=== PATIENT | male | born 1965 | race Caucasian/White ===

== ENCOUNTER 2023-08-09 11:00 | Emergency (ER) | payer SELFPAY ==
[~2023-08-09 11:00] MED LIST: Iopamidol 370 76% 100 ML VIAL ONE
[2023-08-09 12:05] LABS: #Basophils 0.1 thou/uL (0.0-0.2); #Eosinphils 0.3 thou/uL (0.0-0.7); #Monocytes 0.8 thou/uL (0.11-0.59); #Neutrophils 10.6 thou/uL (1.40-6.50); %Basophils 0.8 % (0.0-1.0); %Eosinophils 2.4 % (0.0-10.0); %Lymphocytes 19.9 % (21.0-51.0); %Monocytes 5.3 % (0.0-10.0); %Neutrophils 71.6 % (42.0-75.0); Hematocrit 51.6 % (42.0-52.0); Hemoglobin 17.2 g/dL (14.0-18.0); Mean Corpuscular HGB CONC 33.4 g/dL (32.0-36.0); Mean Corpuscular Hemoglobin 30.4 pg (27.0-31.0); Mean Platelet Volume 7.5 fL (7.4-10.4); Platelet Count 260 10x3/uL (130-400); RBC Distribution Width 13.1 % (11.5-14.5); Red Blood Cell (RBC) Count 5.67 mill/uL (4.70-6.10); White Blood Cell (WBC) Count 14.8 10x3/uL (4.8-10.8)
[2023-08-09] MEDS ORDERED: Ketorolac Tromethamine 30 MG/ML VIAL ONE (12:10)
[2023-08-09 12:19] LABS: ALT (SGPT) 25 U/L (8-55); AST (SGOT) 15 U/L (5-34); Albumin 4.2 g/dL (3.5-5.0); Alkaline Phosphatase 54 U/L (40-110); Anion Gap 12 mmol/L (10-20); BUN (Urea Nitrogen) 17 mg/dL (8.4-25.7); Bilirubin, Total 0.5 mg/dL (0.2-1.2); Calc. Creatinine Clearance 0 mL/min (70-130); Carbon Dioxide 23 mmol/L (22-29); Chloride 107 mmol/L (98-107); Estimated GFR 87; Globulin 3.1 g/dL (2.4-3.5); Glucose 124 mg/dL (70-105); Potassium 4.2 mmol/L (3.5-5.1); Protein, Total 7.3 g/dL (6.0-8.3); Sodium 138 mmol/L (136-145)
[2023-08-09 12:20] LABS: Troponin I Less than 0.010 ng/mL (< 0.028)
[2023-08-09] MEDS ORDERED: Albuterol 2.5 MG/0.5 ML NEB ONE (12:36)
[2023-08-09] MEDS ORDERED: Mag-Al Plus 1200 MG/1200 MG/120 MG/30 ML UDCUP ONE (13:34)
[2023-08-09] MEDS ORDERED: Lidocaine Viscous Sol 2% 15 ml UD Cup ONE (13:34)
[2023-08-09 13:58] LABS: Base Excess-Venous -1.2 mmol/L (-2.0 to 3.0); Bicarbonate (HCO3v) 22.8 mmol/L (22.0-28.0); CO2 Tension (PvCO2) 36.1 mmHg (42.0-51.0); Calcium, Ionized 1.18 mmol/L (1.15-1.33); Chloride 108 mmol/L (98-107); Hemoglobin - Calc 18.9 g/dL (14.0-18.0); Potassium 4.4 mmol/L (3.5-5.1); Sodium 142 mmol/L (138-145); T. Carbon Dioxide 23.9 mmol/L (22.0-28.0); vO2 Saturation-calc 91.4 % (60.0-85.0)
[2023-08-09] MEDS ORDERED: methylPREDNISolone Sod Succ/PF 125 MG/2 ML VIAL ONE (15:49)
[2023-08-09] MEDS ORDERED: Morphine 4 MG/ML VIAL ONE (15:50)
== END 2023-08-09 16:23 | disposition home or self-care (01) ==
LOC: NAV ERS 11:00
DX: R07.81 Pleurodynia (principal)
CPT/HCPCS: 71046; 71275; 80053; 82330; 82803; 83880; 84484; 85025; 85379; 93005; 96374; 96375; J1885; J2270; J2930; J7611; Q9967